=== PATIENT | female | born 2000 | race Caucasian/White ===

== ENCOUNTER 2022-02-26 16:31 | Emergency (ER) | payer BC ==
[~2022-02-26] VITALS: Ht 165.1 cm; Wt 68.0 kg
[2022-02-26] MEDS ORDERED: NS IV 1000 ML 1,000 ML IV SCH (16:45)
[2022-02-26] MEDS ORDERED: ACETAMINOPHEN 325 MG TABLET PO ONE (16:45)
--- NOTE | 2022-02-26 16:58 | ED Cough/URI ---
General Chief Complaint: Cough/Cold/Flu Symptoms Stated Complaint: FEVER,COUGH,N/V Nursing Triage Note: PT AMBULATE TO ROOM WITHOUT DIFFICULTY WITH C/O FLU LIKE SYMPTOMS. PT REPORTS BEING SEEN AT URGENT CARE ON MONDAY AND TOLD SHE HAD THE FLU. PT REPORTS THEY DID NOT SWAB HER FOR THE FLU. PT REPORTS HER "HEART IS RACING" AND STATES SHE CANNOT SLEEP. Source: patient Exam Limitations: no limitations History of Present Illness Date Seen by Provider: Feb 26, 2022 Time Seen by Provider: 16:40 Initial Comments Patient is a 21-year-old female presents with palpitations, sore throat and intermittent fever body aches for the past 3 days. Patient was seen at local urgent care 2 days ago and diagnosed with flulike symptoms. She has been taking Mucinex DM with limited relief. At home her heart rates been ranging from the 110s to the 160s. She has a history of hyperthyroidism is compliant with medication. She denies shortness of breath, nausea vomiting sweats. She denies cough chest pain, she denies leg pain and swelling. Last menstrual period was 5 months ago. Patient receives Depo-Provera injections. Timing/Duration: intermittent Prior Episodes/Possible Cause: other Modifying Factors: Improves With Other Associated Symptoms: other Allergies and Home Medications Allergies Coded Allergies: No Known Drug Allergies (Unverified , 02/26/22) Patient Home Medication List Home Medication List Reviewed: Yes Review of Systems Review of Systems Constitutional: see HPI EENTM: see HPI Respiratory: see HPI Cardiovascular: see HPI Gastrointestinal: see HPI Genitourinary: see HPI : No Musculoskeletal: other Skin: other Psychiatric/Neurological: Other Hematologic/Lymphatic: Other Past Fvzhcgo-Xejxol-Nellie Hx Patient Social History Tobacco Use?: No Smoking Status: Never a Smoker Smokeless Tobacco Frequency: Never a User Use of E-Cig and/or Vaping dev: No Use of E-Cig and/or Vaping Christiano: Never a User Substance use?: No Alcohol Use?: Yes Alcohol Frequency: Once in a while Pt feels they are or have been: No Immunizations Up To Date COVID19 Vaccine 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 oz. 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, alert, oriented x 3, other (anxious) Progress/Results/Core Measures Suspected Sepsis SIRS Temperature: Pulse: 134 Respiratory Rate: 20 Laboratory Tests 02/26/22 16:59: White Blood Count 5.9 Blood Pressure 150 /107 Mean: 121 Laboratory Tests 02/26/22 16:59: Creatinine 0.78, Platelet Count 226, Total Bilirubin 0.3 Results/Orders Lab Results Laboratory Tests Test 02/26/22 16:59 02/26/22 17:09 Range/Units White Blood Count 5.9 4.3-11.0 10^3/uL Red Blood Count 4.76 3.80-5.11 10^6/uL Hemoglobin 14.2 11.5-16.0 g/dL Hematocrit 42 35-52 % Mean Corpuscular Volume 87 80-99 fL Mean Corpuscular Hemoglobin 30 25-34 pg Mean Corpuscular Hemoglobin Concent 34 32-36 g/dL Red Cell Distribution Width 12.6 10.0-14.5 % Platelet Count 226 130-400 10^3/uL Mean Platelet Volume 9.2 9.0-12.2 fL Immature Granulocyte % (Auto) 1 % Neutrophils (%) (Auto) 77 H 42-75 % Lymphocytes (%) (Auto) 11 L 12-44 % Monocytes (%) (Auto) 11 0-12 % Eosinophils (%) (Auto) 0 0-10 % Basophils (%) (Auto) 0 0-10 % Neutrophils # (Auto) 4.5 1.8-7.8 10^3/uL Lymphocytes # (Auto) 0.7 L 1.0-4.0 10^3/uL Monocytes # (Auto) 0.6 0.0-1.0 10^3/uL Eosinophils # (Auto) 0.0 0.0-0.3 10^3/uL Basophils # (Auto) 0.0 0.0-0.1 10^3/uL Immature Granulocyte # (Auto) 0.0 0.0-0.1 10^3/uL D-Dimer 0.38 0.00-0.49 UG/ML Sodium Level 140 135-145 MMOL/L Potassium Level 3.9 3.6-5.0 MMOL/L Chloride Level 104 98-107 MMOL/L Carbon Dioxide Level 25 21-32 MMOL/L Anion Gap 11 5-14 MMOL/L Blood Urea Nitrogen 8 7-18 MG/DL Creatinine 0.78 0.60-1.30 MG/DL Estimat Glomerular Filtration Rate 109 BUN/Creatinine Ratio 10 Glucose Level 91 70-105 MG/DL Calcium Level 9.9 8.5-10.1 MG/DL Corrected Calcium 8.5-10.1 MG/DL Total Bilirubin 0.3 0.1-1.0 MG/DL Aspartate Amino Transf (AST/SGOT) 56 H 5-34 U/L Alanine Aminotransferase (ALT/SGPT) 108 H 0-55 U/L Alkaline Phosphatase 53 40-136 U/L Total Protein 8.6 H 6.4-8.2 GM/DL Albumin 5.1 H 3.2-4.5 GM/DL Influenza Type A (RT-PCR) Detected H Not Detecte Influenza Type B (RT-PCR) Not Detected Not Detecte SARS-CoV-2 RNA (RT-PCR) Not Detected Not Detecte My Orders Orders - MARIA ANTONIA BARKLEY DO Cbc With Automated Diff (02/26/22 16:42) Comprehensive Metabolic Panel (02/26/22 16:42) Covid 19 Inhouse Test (02/26/22 16:42) Fibrin Degradation Products (02/26/22 16:42) Chest 1 View Ap/Pa Only (02/26/22 16:42) Influenza A And B By Pcr (02/26/22 16:42) Isolation Central Supply Req (02/26/22 16:42) Urine Bedside (02/26/22 16:42) Ns Iv 1000 Ml (Sodium Chloride 0.9%) (02/26/22 16:45) Acetaminophen Tablet/Caplet (Tylenol T (02/26/22 16:45) Medications Given in ED Current Medications Medications Dose Ordered Sig/David Route Start Time Stop Time Status Last Admin Dose Admin Acetaminophen 650 mg ONCE ONCE PO 02/26/22 16:45 02/26/22 16:46 DC 02/26/22 16:57 650 MG Vital Signs/I&O 02/26/22 02/26/22 02/26/22 16:37 16:43 16:57 Temp 38.1 38.1 Pulse 134 Resp 20 B/P (MAP) 150/107 (121) O2 Delivery Room Air Room Air Capillary Refill : Less Than 3 Seconds Blood Pressure Mean: 121 Departure Communication (Admissions) EKG: Sinus tach, rate 134, no acute ST-T wave changes. Nonspecific changes Chest x-ray: Hypoventilation with central infiltrates per radiology report. Patient tachycardic consistent with viral syndrome. IV fluids given with improved vital signs and symptoms. Lab work performed and reassuring. Recommendations for supportive care watchful waiting PCP follow-up. Return precautions reviewed. Patient verbalizes understanding and agreement with discharge instructions prior to departure. Impression Primary Impression: Influenza Disposition: HOME, SELF-CARE Condition: Stable Departure-Patient Inst. Decision time for Depature: 17:56 Referrals: NO,LOCAL PHYSICIAN (PCP/Family) Primary Care Physician Patient Instructions: Flu Add. Discharge Instructions: You were evaluated in the emergency department for fever body aches and a fast heart rate. EKG lab and imaging studies were performed and are consistent with viral syndrome due to influenza a. Please increase fluids, take Tylenol and/or ibuprofen for fever and continue to self quarantine. Follow-up with your PCP in 3 to 5 days for reevaluation if symptoms persist. Return to the ED if new or worsening symptoms. All discharge instructions reviewed with patient and/or family. Voiced understanding. Work/School Note: School/Childcare Release Date Seen in the Emergency Department: Feb 26, 2022 Time Dismissed from Emergency Department: 17:57 Return to School: Mar 01, 2022 Restrictions: No Restrictions MARIA ANTONIA BARKLEY DO Feb 26, 2022 16:58
--- NOTE | 2022-02-26 17:04 | Diagnostic Imaging Report ---
INDICATION: Dyspnea. COMPARISON: None. DISCUSSION: Single portable upright view of the chest was obtained. Low lung volumes. Very mild bilateral perihilar infiltrates are noted which are nonspecific and could be due to atelectasis given very poor inspiratory effort. Early pneumonia or edema cannot be entirely excluded. Recommend two views of the chest with better inspiratory effort when able. No pleural fluid or pneumothorax. No osseous abnormality. IMPRESSION: Low lung volumes with nonspecific central infiltrates. Dictated by: Dictated on workstation # [id number]
[2022-02-26 17:08] LABS: BASOPHILS % (AUTO) 0 % (0-10); EOSINOPHILS % (AUTO) 0 % (0-10); HEMATOCRIT 42 % (35-52); HEMOGLOBIN 14.2 g/dL (11.5-16.0); LYMPHOCYTES # (AUTO) 0.7 10^3/uL (1.0-4.0); LYMPHOCYTES % (AUTO) 11 % (12-44); MEAN CORPUSCULAR HEMOGLOBIN 30 pg (25-34); MEAN CORPUSCULAR HGB CONC 34 g/dL (32-36); MEAN CORPUSCULAR VOLUME 87 fL (80-99); MEAN PLATELET VOLUME 9.2 fL (9.0-12.2); MONOCYTES # (AUTO) 0.6 10^3/uL (0.0-1.0); MONOCYTES % (AUTO) 11 % (0-12); NEUTROPHILS # (AUTO) 4.5 10^3/uL (1.8-7.8); NEUTROPHILS % (AUTO) 77 % (42-75); PLATELET COUNT 226 10^3/uL (130-400); WHITE BLOOD COUNT 5.9 10^3/uL (4.3-11.0)
[2022-02-26 17:28] LABS: CHLORIDE 104 MMOL/L (98-107); POTASSIUM 3.9 MMOL/L (3.6-5.0); SODIUM 140 MMOL/L (135-145)
[2022-02-26 17:29] LABS: ALANINE AMINOTRANSFERASE 108 U/L (0-55); ALBUMIN 5.1 GM/DL (3.2-4.5); ALKALINE PHOSPHATASE 53 U/L (40-136); BILIRUBIN,TOTAL 0.3 MG/DL (0.1-1.0); BUN/CREATININE RATIO 10; CALCIUM 9.9 MG/DL (8.5-10.1); CARBON DIOXIDE 25 MMOL/L (21-32); CREATININE SERUM 0.78 MG/DL (0.60-1.30); GFR ESTIMATED 109; GLUCOSE 91 MG/DL (70-105); TOTAL PROTEIN 8.6 GM/DL (6.4-8.2)
[2022-02-26 18:20] VITALS: BP 136/78
== END 2022-02-26 18:20 | disposition home or self-care (01) ==
LOC: ER FS 16:33
DX: J11.1 Influenza due to unidentified influenza virus with other respiratory manifestations (principal); Z20.822 Contact with and (suspected) exposure to COVID-19
CPT/HCPCS: 36415; 71045; 80053; 84703; 85025; 85379; 87636; 93005